=== PATIENT | female | born 2000 | race African-American/Black ===

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

== ENCOUNTER 2022-07-12 19:08 | Day surgery (SDC) | payer OTHER ==
[2022-07-12 19:45] VITALS: BMI 36.0
[2022-07-12 22:21] LABS: Bilirubin Neg (Negative); Blood, Urine Negative (Negative); Clarity Clear (Clear); Glucose, Urine (Dipstick) Normal (Negative); Ketone, Urine 150 mg/dL (Negative); Leukocyte 100 (Negative); Nitrite Negative (Negative); Protein, Urine (Dipstick) 15 mg/dl (Neg-Trace); pH, Urine 6.5 (5.0-9.0)
[2022-07-12 22:34] LABS: Bacteria/HPF Rare-Few HPF (None Seen); CAUTI Indications for Culture Pregnancy; RBC/HPF 0-3 HPF (0-3); Squamous Epithelial 0-3 HPF (0-3)
[2022-07-12 22:35] LABS: Urine Culture Reflex Yes Yes
[2022-07-12 22:59] LABS: #Eosinphils 0.1 10x3/uL (0.0-0.5); #Monocytes 1.5 10x3/uL (0.0-1.1); #Neutrophils 13.6 10x3/uL (1.5-8.4); %Basophils 0.2 % (0.0-2.0); %Eosinophils 0.7 % (0.0-6.0); %Lymphocytes 9.9 % (18.0-47.0); %Monocytes 8.7 % (0.0-10.0); Hemoglobin 9.9 g/dL (12.0-15.5); Mean Corpuscular HGB CONC 33.9 g/dL (32.0-36.0); Mean Corpuscular Hemoglobin 27.7 pg (27.0-33.0); Mean Corpuscular Volume 81.8 fl (81.6-98.3); Mean Platelet Volume 11.4 fl (7.4-10.4); Platelet Count 326 10x3/uL (150-450); RBC Distribution Width 13.6 % (11.5-14.5); Red Blood Cell (RBC) Count 3.57 10x6/uL (3.90-5.03)
[2022-07-12 23:12] LABS: ALT (SGPT) 6 U/L (8-55); AST (SGOT) 17 U/L (5-34); Albumin 3.1 g/dL (3.5-5.0); Alkaline Phosphatase 88 U/L (40-100); Anion Gap 14 mmol/L (10-20); BUN (Urea Nitrogen) Less than 4 mg/dL (7.0-18.7); Bilirubin, Total 0.6 mg/dL (0.2-1.2); Calc. Creatinine Clearance 235 mL/min (70-130); Calcium 8.5 mg/dL (7.8-10.44); Carbon Dioxide 20 mmol/L (22-29); Chloride 105 mmol/L (98-107); Estimated GFR 130; Globulin 3.9 g/dL (2.4-3.5); Glucose 77 mg/dL (70-105); Potassium 3.7 mmol/L (3.5-5.1); Sodium 135 mmol/L (136-145)
== END 2022-07-12 23:40 | disposition home or self-care (01) ==
LOC: CSHLD/OP 19:08
PROVIDERS: ATTEND Obstetrics & Gynecology
DX: O36.8130 Decreased fetal movements, third trimester, not applicable or unspecified (principal); O26.893 Other specified pregnancy related conditions, third trimester; R10.9 Unspecified abdominal pain; O99.213 Obesity complicating pregnancy, third trimester; O98.313 Other infections with a predominantly sexual mode of transmission complicating pregnancy, third trimester; A74.9 Chlamydial infection, unspecified; O23.593 Infection of other part of genital tract in pregnancy, third trimester; A59.9 Trichomoniasis, unspecified; Z79.899 Other long term (current) drug therapy; Z3A.28 28 weeks gestation of pregnancy
CPT/HCPCS: 36415; 76816; 76819; 80053; 81001; 85025; 87086

== ENCOUNTER 2022-09-04 18:16 | Day surgery (SDC) | payer OTHER ==
[2022-09-04] MEDS ORDERED: hydrALAZINE 20 MG/ML VIAL SLOW IVP PRN (19:41)
[2022-09-04 20:14] LABS: Bilirubin Neg (Negative); Glucose, Urine (Dipstick) Normal (Negative); Urobilinogen Normal mg/dL (Less than 2)
[2022-09-04 20:16] LABS: Blood, Urine 50 (Negative); Clarity Clear (Clear); Ketone, Urine Negative (Negative); Leukocyte Negative (Negative); Nitrite Negative (Negative); Protein, Urine (Dipstick) 100 mg/dl (Neg-Trace)
[2022-09-04 20:26] LABS: Bacteria/HPF 3+ HPF (None Seen); CAUTI Indications for Culture Pregnancy; Mucous/LPF 2+ LPF (<2+); RBC/HPF 0-3 HPF (0-3); Squamous Epithelial 0-3 HPF (0-3); WBC/HPF 0-3 HPF (0-3)
[2022-09-04 20:27] LABS: Urine Culture Reflex Yes Yes
[2022-09-05 01:32] LABS: Chlamydia by PCR, Vaginal Swab Not Detected (NotDetected); GC by PCR, Vaginal Swab Not Detected (NotDetected); Tric.vaginalis PCR,Vaginal Sw Not Detected (NotDetected)
== END 2022-09-04 21:26 | disposition home or self-care (01) ==
LOC: CSHLD/OP 18:16
PROVIDERS: ATTEND Emergency Medicine
DX: O26.893 Other specified pregnancy related conditions, third trimester (principal); R10.9 Unspecified abdominal pain; O99.013 Anemia complicating pregnancy, third trimester; D64.9 Anemia, unspecified; O99.213 Obesity complicating pregnancy, third trimester; E66.9 Obesity, unspecified; Z3A.37 37 weeks gestation of pregnancy; Z86.19 Personal history of other infectious and parasitic diseases; Z79.899 Other long term (current) drug therapy
CPT/HCPCS: 81001; 87086; 87491; 87591; 87661; 99283

== ENCOUNTER 2022-09-20 09:23 | Inpatient (IN) | payer OTHER ==
[2022-09-20 09:59] VITALS: BMI 34.7
[2022-09-20] MEDS ORDERED: hydrALAZINE 20 MG/ML VIAL SLOW IVP PRN (10:32)
[2022-09-20] MEDS ORDERED: Lidocaine 1% (PF) 30 ML VIAL SC PRN (12:50)
[2022-09-20] MEDS ORDERED: Ondansetron PF 4 MG/2 ML Vial IVP PRN ×2 (12:50→23:06)
[2022-09-20] MEDS ORDERED: Promethazine HCl 25 MG/ML VIAL IM PRN ×2 (12:50→23:06)
[2022-09-20] MEDS ORDERED: Misoprostol 100 MCG TAB VAG SCH (13:00)
[2022-09-20] MEDS ORDERED: Lactated Ringer's 1,000 ML IV SCH (13:00)
[2022-09-20] MEDS ORDERED: NS w/ Oxytocin 30 units 500 ML IV SCH (13:00)
[2022-09-20] MEDS ORDERED: Misoprostol 200 MCG TAB PR PRN (15:12)
[2022-09-20] MEDS ORDERED: Carboprost 250 MCG/ML AMP IM PRN (15:12)
[2022-09-20] MEDS ORDERED: Diphenoxylate HCl/Atropine Tablet PO PRN (15:12)
[2022-09-20] MEDS ORDERED: Methylergonovine 0.2 MG/ML VIAL IM PRN (15:12)
[2022-09-20] MEDS ORDERED: Tranexamic Acid 1,000 MG/10 ML VIAL IVP PRN (15:12)
[2022-09-20 15:14] LABS: Hemoglobin 9.8 g/dL (12.0-15.5); Mean Corpuscular Hemoglobin 26.1 pg (27.0-33.0); Mean Corpuscular Volume 79.2 fl (81.6-98.3); Mean Platelet Volume 11.9 fl (7.4-10.4); Platelet Count 368 10x3/uL (150-450); RBC Distribution Width 14.9 % (11.5-14.5); Red Blood Cell (RBC) Count 3.75 10x6/uL (3.90-5.03); White Blood Cell (WBC) Count 11.9 10x3/uL (3.5-10.5)
[2022-09-20 15:29] LABS: HBSAg Index 0.17 S/CO (0-0.99); Hep B Surf Ag - L&D Non-Reactive S/CO (NonReactive); Syphilis Antibody Nonreactive (Nonreactive); Syphilis Antibody Index 0.05 S/CO (<1.00 Non-Reactive)
[2022-09-20] MEDS ORDERED: ePHEDrine Sulfate 50 MG/10 ML VIAL ONE (16:41)
[2022-09-20] MEDS ORDERED: Lidocaine 2% MPF 10 ML AMP (For Epidural Use) ONE (16:41)
[2022-09-20] MEDS ORDERED: Bupivacaine 0.25% HCL 30 ML VIAL ONE (16:41)
[2022-09-20] MEDS: fentaNYL/Ropivacaine Epidural 100 ML ONE (22:45)
[2022-09-20] MEDS ORDERED: Acetaminophen 325 MG TAB PO PRN (23:06)
[2022-09-20] MEDS ORDERED: Lactated Ringer's 500 ML IV PRN (23:06)
[2022-09-20] MEDS ORDERED: Moisturizing Cream (Eucerin) 113 GM JAR TOP PRN (23:06)
[2022-09-20] MEDS ORDERED: ePHEDrine Sulfate 50 MG/10 ML VIAL SLOW IVP PRN (23:06)
[2022-09-20] MEDS ORDERED: diphenhydrAMINE 50 MG/ML VIAL IVP PRN (23:06)
[2022-09-20] MEDS ORDERED: Naloxone HCl 0.4 mg/ml Vial IVP PRN ×2 (23:06)
[2022-09-20] MEDS ORDERED: fentaNYL 2 mcg/Ropivacaine 0.2% Epidural 100 ML CADD EPIDURAL SCH (23:15)
[2022-09-20] MEDS ORDERED: Communication Order-Pharmacy FS SCH (23:15)
[2022-09-21] MEDS ORDERED: NS w/ Oxytocin 30 units 500 ML IV SCH (00:45)
[2022-09-21] MEDS ORDERED: Azithromycin 500 MG VIAL ONE (02:38)
[2022-09-21] MEDS ORDERED: CEFAZOLIN 2 GM VIAL ONE (02:38)
[2022-09-21] MEDS ORDERED: Famotidine/PF 20 mg/2ml Vial SLOW IVP PRN ×2 (02:38→02:42)
[2022-09-21] MEDS ORDERED: Bicitra 30 ML UDCUP PO PRN ×2 (02:38→02:42)
[2022-09-21] MEDS ORDERED: CEFAZOLIN 2 GM in Sodium Chloride 0.9% 100 ML IVPB SCH (02:45)
[2022-09-21] MEDS ORDERED: Ondansetron PF 4 MG/2 ML Vial ONE (02:46)
[2022-09-21] MEDS ORDERED: Chloroprocaine 3% PF 20 ML VIAL ONE (02:46)
[2022-09-21] MEDS ORDERED: Azithromycin 500 MG in Sodium Chloride 0.9% 250 ML 250 ML IVPB SCH (03:00)
[2022-09-21] MEDS ORDERED: Metoclopramide HCl 10 MG/2 ML VIAL ONE (03:21)
[2022-09-21] MEDS ORDERED: Morphine PF 10 MG/10 ML VIAL ONE (03:33)
[2022-09-21 03:53] LABS: pH (Cord, venous) 7.358 (7.250-7.350)
[2022-09-21] MEDS ORDERED: Bupivacaine 0.25% HCL 30 ML VIAL ONE (04:08)
[2022-09-21] MEDS ORDERED: PHENYLEPHRINE-NS 100 MCG/ML 10 ML SYRINGE ONE (04:19)
[2022-09-21] MEDS ORDERED: Fentanyl 100 MCG/2 ML VIAL SLOW IVP PRN (04:53)
[2022-09-21] MEDS ORDERED: Ketorolac Tromethamine 30 MG/ML VIAL IVP PRN (04:53)
[2022-09-21] MEDS ORDERED: Ondansetron PF 4 MG/2 ML Vial IVP PRN (04:53)
[2022-09-21] MEDS ORDERED: Naloxone HCl 0.4 mg/ml Vial IVP PRN ×2 (04:53)
[2022-09-21] MEDS ORDERED: Ondansetron HCl/PF 4 MG/2 ML Vial IVP PRN (04:53)
[2022-09-21] MEDS ORDERED: Promethazine HCl 25 MG SUPP PR PRN (04:53)
[2022-09-21] MEDS ORDERED: Moisturizing Cream (Eucerin) 113 GM JAR TOP PRN (04:53)
[2022-09-21] MEDS ORDERED: diphenhydrAMINE 50 MG/ML VIAL IVP PRN (04:53)
[2022-09-21] MEDS ORDERED: Naloxone HCl 0.4 mg/ml Vial IV PRN (04:53)
[2022-09-21] MEDS ORDERED: Promethazine HCl 25 MG/ML VIAL IM PRN (04:53)
[2022-09-21] MEDS ORDERED: Meperidine HCl/PF 25 MG/ML VIAL SLOW IVP PRN (04:53)
[2022-09-21] MEDS ORDERED: Communication Order-Pharmacy FS SCH (05:00)
[2022-09-21] MEDS ORDERED: Ketorolac Tromethamine 30 MG/ML VIAL IVP SCH (05:00)
[2022-09-21 06:39] LABS: D-Dimer Test 4.3 mg/L FEU (0.19-0.50); PTT 28.5 sec (22.0-33.0); Prothrombin Time 10.3 sec (9.5-12.1)
[2022-09-21 12:00] LABS: Hemoglobin 7.9 g/dL (12.0-15.5); Mean Corpuscular HGB CONC 32.9 g/dL (32.0-36.0); Mean Corpuscular Hemoglobin 26.1 pg (27.0-33.0); Mean Corpuscular Volume 79.2 fl (81.6-98.3); Mean Platelet Volume 11.3 fl (7.4-10.4); Platelet Count 300 10x3/uL (150-450); RBC Distribution Width 14.9 % (11.5-14.5); Red Blood Cell (RBC) Count 3.03 10x6/uL (3.90-5.03); White Blood Cell (WBC) Count 18.5 10x3/uL (3.5-10.5)
[2022-09-21] MEDS ORDERED: Iron Sucrose Complex 200 MG in Sodium Chloride 0.9% 100 ML IVPB SCH (13:45)
[2022-09-21] MEDS ORDERED: Ferrous Sulfate 325 MG TAB PO SCH (14:00)
[2022-09-22 04:29] LABS: Hemoglobin 7.2 g/dL (12.0-15.5); Mean Corpuscular HGB CONC 33.2 g/dL (32.0-36.0); Mean Corpuscular Hemoglobin 26.1 pg (27.0-33.0); Mean Corpuscular Volume 78.6 fl (81.6-98.3); Mean Platelet Volume 11.6 fl (7.4-10.4); Platelet Count 311 10x3/uL (150-450); RBC Distribution Width 15.2 % (11.5-14.5); Red Blood Cell (RBC) Count 2.76 10x6/uL (3.90-5.03); White Blood Cell (WBC) Count 16.8 10x3/uL (3.5-10.5)
[2022-09-22] MEDS: Ferrous Sulfate 325 MG TAB PO SCH (08:23)
[2022-09-22] MEDS ORDERED: HYDROcodone/Acetaminophen 5/325 mg Tablet PO PRN ×2 (08:24)
[2022-09-22] MEDS: Ibuprofen 800 MG TAB PO SCH ×2 (13:52→22:04)
[2022-09-23 05:44] LABS: Hemoglobin 7.4 g/dL (12.0-15.5); Mean Corpuscular HGB CONC 33.6 g/dL (32.0-36.0); Mean Corpuscular Hemoglobin 26.5 pg (27.0-33.0); Mean Corpuscular Volume 78.9 fl (81.6-98.3); Mean Platelet Volume 10.9 fl (7.4-10.4); Platelet Count 323 10x3/uL (150-450); RBC Distribution Width 15.2 % (11.5-14.5); Red Blood Cell (RBC) Count 2.79 10x6/uL (3.90-5.03); White Blood Cell (WBC) Count 15.1 10x3/uL (3.5-10.5)
[2022-09-23] MEDS: Ibuprofen 800 MG TAB PO SCH ×2 (06:25→14:26)
[2022-09-23 08:15] VITALS: BP 114/57; TEMP 98.2
[2022-09-23] MEDS: Ferrous Sulfate 325 MG TAB PO SCH (08:53)
== END 2022-09-23 15:15 | disposition home or self-care (01) | DRG 787 ==
LOC: CSHLD/OP 09:23 → OBSVTOIN 17:54 → CSHANTE 17:54 → CSHPED 09-21 07:40
PROVIDERS: ADMIT Student in an Organized Health Care Education/Training Program; ATTEND Student in an Organized Health Care Education/Training Program
PROC: 3E0P7VZ Introduction of Hormone into Female Reproductive, Via Natural or Artificial Opening (ICD-10-PCS; 2022-09-20)
PROC: 10D00Z1 Extraction of Products of Conception, Low, Open Approach (ICD-10-PCS; principal; 2022-09-21)
PROC: 10H07YZ Insertion of Other Device into Products of Conception, Via Natural or Artificial Opening (ICD-10-PCS; 2022-09-21)
PROC: 10907ZC Drainage of Amniotic Fluid, Therapeutic from Products of Conception, Via Natural or Artificial Opening (ICD-10-PCS; 2022-09-21)
DX: O99.214 Obesity complicating childbirth (principal); D62 Acute posthemorrhagic anemia; O72.1 Other immediate postpartum hemorrhage; O90.81 Anemia of the puerperium; O76 Abnormality in fetal heart rate and rhythm complicating labor and delivery; O69.81X0 Labor and delivery complicated by cord around neck, without compression, not applicable or unspecified; E66.9 Obesity, unspecified; Z3A.39 39 weeks gestation of pregnancy; Z37.0 Single live birth
CPT/HCPCS: 36415; 51702; 82805; 85027; 85049; 85300; 85362; 85379; 85384; 85610; 85730; 86780; 86850; 86900; 86901; 87340; 88307; 99285; J1756; J1885; J2274; J2401; J2405; J2765; J3490; S0020

== ENCOUNTER 2023-12-23 10:08 | Inpatient (IN) | payer MEDICAID ==
[2023-12-23 10:24] VITALS: BMI 32.1
[2023-12-23] MEDS ORDERED: Bicitra 30 ML UDCUP PO PRN (10:38)
[2023-12-23] MEDS ORDERED: hydrALAZINE 20 MG/ML VIAL SLOW IVP PRN ×2 (10:38→13:48)
[2023-12-23] MEDS ORDERED: Tranexamic Acid 1,000 MG/10 ML VIAL IVP PRN (10:38)
[2023-12-23] MEDS ORDERED: Methylergonovine 0.2 MG/ML VIAL IM PRN (10:38)
[2023-12-23] MEDS ORDERED: Misoprostol 200 MCG TAB PR PRN (10:38)
[2023-12-23] MEDS ORDERED: Diphenoxylate HCl/Atropine Tablet PO PRN (10:38)
[2023-12-23] MEDS ORDERED: Promethazine HCl 25 MG/ML VIAL IM PRN ×2 (10:38→12:01)
[2023-12-23] MEDS ORDERED: Ondansetron PF 4 MG/2 ML Vial IVP PRN ×2 (10:38→12:01)
[2023-12-23] MEDS ORDERED: Acetaminophen 500 MG TAB PO PRN (10:38)
[2023-12-23] MEDS ORDERED: Carboprost 250 MCG/ML AMP IM PRN (10:38)
[2023-12-23] MEDS ORDERED: Oxytocin 30 units/NS 500 ML 500 ML IV SCH (10:45)
[2023-12-23] MEDS ORDERED: Lactated Ringer's 1,000 ML IV SCH (10:45)
[2023-12-23] MEDS ORDERED: CEFAZOLIN 2 GM in Sodium Chloride 0.9% 100 ML IVPB SCH (10:45)
[2023-12-23 11:13] LABS: Hematocrit 27.7 % (34.9-44.5); Hemoglobin 8.7 g/dL (12.0-15.5); Mean Corpuscular HGB CONC 31.4 g/dL (32.0-36.0); Mean Corpuscular Hemoglobin 23.1 pg (27.0-33.0); Mean Corpuscular Volume 73.7 fL (81.6-98.3); Mean Platelet Volume 10.8 fL (7.4-10.4); Platelet Count 393 10x3/uL (150-450); RBC Distribution Width 16.6 % (11.5-14.5); Red Blood Cell (RBC) Count 3.76 10x6/uL (3.90-5.03); White Blood Cell (WBC) Count 13.4 10x3/uL (3.5-10.5)
[2023-12-23 11:36] LABS: HBsAg Index 0.25 S/CO (0-0.99); Hep B Surf Ag - L&D Non-Reactive S/CO (NonReactive)
[2023-12-23] MEDS ORDERED: Moisturizing Cream (Eucerin) 113 GM JAR TOP PRN (12:01)
[2023-12-23] MEDS ORDERED: Naloxone HCl 0.4 mg/ml Vial IV PRN (12:01)
[2023-12-23] MEDS ORDERED: diphenhydrAMINE 50 MG/ML VIAL IVP PRN (12:01)
[2023-12-23] MEDS ORDERED: Naloxone HCl 0.4 mg/ml Vial IVP PRN ×2 (12:01)
[2023-12-23] MEDS ORDERED: fentaNYL 50 mcg/mL 1 mL Vial SLOW IVP PRN (12:01)
[2023-12-23] MEDS ORDERED: HYDROmorphone 0.5 MG/0.5 ML SYRINGE SLOW IVP PRN (12:01)
[2023-12-23] MEDS ORDERED: Meperidine HCl/PF 25 MG (1 mL) VIAL SLOW IVP PRN (12:01)
[2023-12-23] MEDS: Famotidine/PF 20 mg/2ml Vial SLOW IVP PRN (12:03)
[2023-12-23] MEDS ORDERED: Communication Order-Pharmacy FS SCH (12:15)
[2023-12-23] MEDS ORDERED: Ketorolac Tromethamine 30 MG (1 mL) VIAL IVP SCH (12:15)
[2023-12-23 13:23] LABS: Syphilis Antibody REACTIVE (Nonreactive)
[2023-12-23 13:28] LABS: Syphilis Titer 1:32 Titer (Negative)
[2023-12-23] MEDS: Bicillin LA 2.4 MILL.UNITS/4 ML SYRINGE IM SCH (14:29)
[2023-12-23] MEDS: Morphine PF 10 MG/10 ML VIAL ONE (16:48)
[2023-12-23] MEDS: Oxytocin 10 UNITS/ML VIAL ONE ×2 (16:48→16:49)
[2023-12-23] MEDS: Ondansetron PF 4 MG/2 ML Vial ONE (16:48)
[2023-12-23] MEDS: Phenylephrine 40 MG/NS 250 ML 250 ML ONE (16:48)
[2023-12-23] MEDS: fentaNYL 50 mcg/mL 1 mL Vial ONE (16:48)
[2023-12-23] MEDS: Phytonadione Neonatal 1 MG/0.5 ML AMP ONE (16:49)
[2023-12-23] MEDS: Boostrix 0.5 ML (Tdap) VIAL (>/=7 yrs of age) IM ONE (16:49)
[2023-12-23] MEDS: ePHEDrine Sulfate 50 MG/10 ML VIAL ONE (16:49)
[2023-12-23] MEDS: Ketorolac Tromethamine 30 MG (1 mL) VIAL ONE (16:49)
[2023-12-23] MEDS: Erythromycin Base 0.5% Oint 1 GM TUBE ONE (16:49)
[2023-12-23] MEDS: Ondansetron PF 4 MG/2 ML Vial IVP PRN (16:57)
[2023-12-23 17:17] LABS: HIV (1/2) Antibody/Antigen Non-Reactive (NonReactive); HIV 1/2 INDEX 0.06 S/CO (<1.00)
[2023-12-23 18:06] LABS: Amphetamine Not Detected (NotDetected); Barbiturates Screen Not Detected (NotDetected); Benzodiazepine Screen Not Detected (NotDetected); Cocaine Metabolite Screen Not Detected (NotDetected); Methadone Not Detected (NotDetected); Methamphetamine Detected (NotDetected); Opiate Screen Detected (NotDetected); Oxycodone Screen Not Detected (NotDetected); Phencyclidine (PCP) Not Detected (NotDetected); THC/Cannabinoid Screen Not Detected (NotDetected); Tricyclic Screen Not Detected (NotDetected)
[2023-12-23] MEDS: Ketorolac Tromethamine 30 MG (1 mL) VIAL IVP PRN (19:59)
[2023-12-23] MEDS: Ferrous Sulfate 325 MG TAB PO SCH (20:00)
[2023-12-24 03:59] LABS: Hematocrit 21.2 % (34.9-44.5); Hemoglobin 6.9 g/dL (12.0-15.5); Mean Corpuscular HGB CONC 32.5 g/dL (32.0-36.0); Mean Corpuscular Volume 73.6 fL (81.6-98.3); Mean Platelet Volume 10.6 fL (7.4-10.4); Platelet Count 310 10x3/uL (150-450); RBC Distribution Width 16.6 % (11.5-14.5); Red Blood Cell (RBC) Count 2.88 10x6/uL (3.90-5.03); White Blood Cell (WBC) Count 15.5 10x3/uL (3.5-10.5)
[2023-12-24] MEDS: Prenatal Vitamin 1 TAB PO SCH (08:46)
[2023-12-24 16:45] LABS: Hematocrit 30.3 % (34.9-44.5); Hemoglobin 9.4 g/dL (12.0-15.5)
[2023-12-24] MEDS: Ibuprofen 800 MG TAB PO SCH (18:31)
[2023-12-25] MEDS: Acetaminophen 325 MG TAB PO PRN (08:31)
[2023-12-26 07:47] VITALS: BP 115/74; TEMP 98.1
[2023-12-26] MEDS: Ibuprofen 800 MG TAB PO SCH (13:57)
== END 2023-12-26 14:00 | disposition home or self-care (01) | DRG 787 ==
LOC: CSHLD 10:08 → CSHPP 16:35
PROVIDERS: ADMIT Obstetrics & Gynecology; ATTEND Obstetrics & Gynecology
PROC: 10D00Z1 Extraction of Products of Conception, Low, Open Approach (ICD-10-PCS; principal; 2023-12-23)
DX: O34.211 Maternal care for low transverse scar from previous cesarean delivery (principal); O98.12 Syphilis complicating childbirth; O48.0 Post-term pregnancy; Z3A.40 40 weeks gestation of pregnancy; Z37.0 Single live birth; E66.9 Obesity, unspecified; A52.8 Late syphilis, latent; O99.214 Obesity complicating childbirth; D64.9 Anemia, unspecified; O99.03 Anemia complicating the puerperium
CPT/HCPCS: 36415; 36430; 51702; 80306; 85027; 86593; 86762; 86780; 86850; 86900; 86901; 87340; 87389; J0561; J1885; J2274; J2405; J2590; J3010; J3490; P9016